=== PATIENT | male | born 1965 | race Two or more races ===

== ENCOUNTER 2017-10-11 14:30 | Emergency (ER) | payer SELFPAY ==
[~2017-10-11] VITALS: Ht 177.8 cm; Wt 61.0 kg
[2017-10-11 17:18] LABS: BASOPHILS % 0.6 % (0.0-2.0); EOSINOPHILS % 2.6 % (0.0-5.0); HEMOGLOBIN. 16.9 g/dL (14.0-18.0); LYMPHOCYTES % 23.1 % (20.0-50.0); MEAN CORPUSCULAR HEMOGLOBIN 32.1 pg (28.0-32.0); MEAN CORPUSCULAR VOLUME 92.9 fL (80.0-94.0); MEAN PLATELET VOLUME 10.8 fl (7.4-10.4); MONOCYTES % 5.8 % (2.0-8.0); NEUTROPHILS % 67.9 % (40.0-76.0); PLATELET 177 x1000/uL (130-400); RED BLOOD CELL COUNT 5.27 mill/uL (4.7-6.1)
[2017-10-11 17:24] LABS: CHLORIDE 106 mEq/L (98-107)
[2017-10-11 21:13] LABS: CLARITY URINE CLEAR (CLEAR); COLOR URINE YELLOW (YELLOW); KETONES URINE NEGATIVE (NEGATIVE); LEUKOCYTE ESTERASE URINE NEGATIVE (NEGATIVE); NITRITE URINE NEGATIVE (NEGATIVE); OCCULT BLOOD URINE 1+ (NEGATIVE); PROTEIN URINE NEGATIVE (NEGATIVE); SPECIFIC GRAVITY URINE 1.019 (1.005-1.030); UROBILINOGEN URINE 0.2 E.U./dL (0.2-1.0)
[2017-10-11 21:56] VITALS: BP 128/74
== END 2017-10-11 21:59 | disposition home or self-care (01) ==
LOC: ER 14:30
DX: R07.89 Other chest pain (principal); F41.9 Anxiety disorder, unspecified; F17.200 Nicotine dependence, unspecified, uncomplicated; Z87.19 Personal history of other diseases of the digestive system
CPT/HCPCS: 36415; 71045; 80053; 81003; 84484; 85025; 93005; 99285

== ENCOUNTER 2018-02-20 11:29 | Emergency (ER) | payer SELFPAY ==
[~2018-02-20] VITALS: Ht 165.1 cm; Wt 75.0 kg
[2018-02-20 11:36] VITALS: BP 125/65
== END 2018-02-20 13:31 | disposition home or self-care (01) ==
LOC: ER 11:29
DX: F41.9 Anxiety disorder, unspecified (principal); Z76.0 Encounter for issue of repeat prescription; F17.200 Nicotine dependence, unspecified, uncomplicated
CPT/HCPCS: 99283

== ENCOUNTER 2018-04-18 14:13 | Emergency (ER) | payer SELFPAY ==
[~2018-04-18] VITALS: Ht 177.8 cm; Wt 64.0 kg
[2018-04-18 14:40] VITALS: BP 122/79
== END 2018-04-18 18:20 | disposition home or self-care (01) ==
LOC: ER 15:37
DX: F41.9 Anxiety disorder, unspecified (principal)
CPT/HCPCS: 99283

== ENCOUNTER 2018-05-09 10:34 | Emergency (ER) | payer SELFPAY ==
[~2018-05-09] VITALS: Ht 170.2 cm; Wt 67.0 kg
[2018-05-09 12:55] VITALS: BP 115/80
== END 2018-05-09 12:56 | disposition home or self-care (01) ==
LOC: ER 10:57
DX: F41.0 Panic disorder [episodic paroxysmal anxiety] (principal); F41.9 Anxiety disorder, unspecified; F17.200 Nicotine dependence, unspecified, uncomplicated
CPT/HCPCS: 99284

== ENCOUNTER 2018-05-23 12:44 | Emergency (ER) | payer SELFPAY ==
[~2018-05-23] VITALS: Ht 170.2 cm; Wt 64.0 kg
[2018-05-23 15:55] VITALS: BP 109/69
[2018-05-23] MEDS ORDERED: IBUPROFEN 600MG TABLET PO ONE (16:00)
== END 2018-05-23 17:30 | disposition home or self-care (01) ==
LOC: ER 12:44
DX: M79.622 Pain in left upper arm (principal); M79.621 Pain in right upper arm; F41.9 Anxiety disorder, unspecified
CPT/HCPCS: 99282

== ENCOUNTER 2018-06-13 09:16 | Emergency (ER) | payer SELFPAY ==
[~2018-06-13] VITALS: Ht 167.6 cm; Wt 64.1 kg
[2018-06-13 10:51] VITALS: BP 132/79
== END 2018-06-13 11:03 | disposition home or self-care (01) ==
LOC: ER 09:25
DX: F41.9 Anxiety disorder, unspecified (principal); F17.200 Nicotine dependence, unspecified, uncomplicated
CPT/HCPCS: 99284